=== PATIENT | female | born 1995 | race American Indian/Alaskan Native ===

== ENCOUNTER 2018-10-12 16:38 | Emergency (ER) | payer OTHER ==
--- NOTE | 2018-10-12 18:17 | Emergency Department Report ---
ED Animal Bite HPI - General Chief Complaint: Skin Rash Stated Complaint: LT ARM RASH Time Seen by Provider: 10/12/18 17:21 Source: patient Mode of arrival: Ambulatory Limitations: No Limitations - History of Present Illness Initial Comments: This is a 21-year-old female who presents to ED with complains of itching and red dots around her tattoo which she got on 10/06/2018. Patient states that for the past 2 days she has had some red castillo around the tattoo and they are itching. Patient states she's continue to put A and D ointment on the tattoo, she denies fever, swelling around the tattoo, pus drainage from tattoo for any other symptoms - Related Data Previous Rx's Medication Instructions Recorded Last Taken Type Clindamycin [Clindamycin CAP] 300 mg PO Q8H #15 cap 10/12/18 Unknown Rx Allergies Allergy/AdvReac Type Severity Reaction Status Date / Time No Known Allergies Allergy Verified 10/12/18 16:53 ED Review of Systems ROS: Stated complaint: LT ARM RASH Other details as noted in HPI Comment: All other systems reviewed and negative ED Past Medical Hx - Past Medical History Previous Medical History?: No - Surgical History Past Surgical History?: No - Social History Smoking Status: Never Smoker Substance Use Type: Alcohol - Medications Home Medications: Home Medications Medication Instructions Recorded Confirmed Last Taken Type Clindamycin [Clindamycin CAP] 300 mg PO Q8H #15 cap 10/12/18 Unknown Rx ED Physical Exam - General Limitations: No Limitations General appearance: alert, in no apparent distress - Head Head exam: Present: atraumatic, normocephalic - Eye Eye exam: Present: normal appearance - ENT ENT exam: Present: mucous membranes moist - Neck Neck exam: Present: normal inspection - Respiratory Respiratory exam: Present: normal lung sounds bilaterally. Absent: respiratory distress - Cardiovascular Cardiovascular Exam: Present: regular rate, normal rhythm. Absent: systolic murmur, diastolic murmur, rubs, gallop - GI/Abdominal GI/Abdominal exam: Present: soft, normal bowel sounds - Extremities Exam Extremities exam: Present: normal inspection - Back Exam Back exam: Present: normal inspection - Neurological Exam Neurological exam: Present: alert, oriented X3 - Psychiatric Psychiatric exam: Present: normal affect, normal mood - Skin Skin exam: Present: warm, dry, intact, normal color, other (small, erythema insect bites around her tattoo on the left deltoid muscle. Tattoo looks intact, no pus or erythema or swelling.). Absent: rash - Other Other exam information: 21 female presented with insect bite castillo around her tattoo. Tattoo fluids, no erythema around tattoo, no swelling no signs of infection. discussed patient to continue using Neosporin location on the tattoo and signed discuss clindamycin as a prophylaxis for infection. ED Course Vital Signs 10/12/18 16:51 Temperature 98.3 F Pulse Rate 84 Respiratory 18 Rate Blood Pressure 123/79 [Right] O2 Sat by Pulse 98 Oximetry Critical care attestation.: If time is entered above; I have spent that time in minutes in the direct care of this critically ill patient, excluding procedure time. ED Disposition Clinical Impression: Insect bite, Tattoo of skin Disposition: DC-01 TO HOME OR SELFCARE Is pt being admited?: No Does the pt Need Aspirin: No Condition: Stable Instructions: Insect Bite or Sting (ED) Additional Instructions: Make sure to follow up with the primary care physician as discussed. Take all your medications as you've been prescribed. If you have any worsening symptoms or develop new symptoms please return to ED immediately. Prescriptions: Clindamycin [Clindamycin CAP] 300 mg PO Q8H #15 cap Referrals: [facility] [Outside] - 3-5 Days Forms: Work/School Release Form(ED) Time of Disposition: 18:18
[2018-10-12 18:34] VITALS: BP 132/74
== END 2018-10-12 18:32 | disposition home or self-care (01) ==
LOC: ED 16:38
DX: S40.862A Insect bite (nonvenomous) of left upper arm, initial encounter (principal); L81.8 Other specified disorders of pigmentation; W57.XXXA Bitten or stung by nonvenomous insect and other nonvenomous arthropods, initial encounter; Y93.89 Activity, other specified; Y92.89 Other specified places as the place of occurrence of the external cause; Y99.8 Other external cause status